=== PATIENT | male | born 1995 | race American Indian/Alaskan Native ===

== ENCOUNTER 2020-09-17 08:58 | Emergency (ER) | payer MEDICARE, MEDICAID ==
[~2020-09-17] VITALS: Ht 180.3 cm; Wt 73.0 kg
[~2020-09-17 08:58] MED LIST: CHLO1LIQ2 MC; CLA10T PO; CLIN150C2 PO; CYCL-1 PO; GUAI120015 PO; HYDR-4383 PO; Morphine; NAPR-56 PO; clindamycin; oxycodone
[2020-09-17 09:02] VITALS: BP 135/63
== END 2020-09-17 11:09 | disposition home or self-care (01) ==
LOC: ER 08:58
DX: S29.011A Strain of muscle and tendon of front wall of thorax, initial encounter (principal); J45.909 Unspecified asthma, uncomplicated; F41.9 Anxiety disorder, unspecified; F12.10 Cannabis abuse, uncomplicated; F15.10 Other stimulant abuse, uncomplicated; Z79.899 Other long term (current) drug therapy; V98.8XXA Other specified transport accidents, initial encounter; Y93.89 Activity, other specified; Y92.89 Other specified places as the place of occurrence of the external cause
CPT/HCPCS: 71045; 99283

== ENCOUNTER 2022-03-11 08:37 | Emergency (ER) | payer MEDICARE, MEDICAID ==
[~2022-03-11] VITALS: Ht 180.3 cm; Wt 70.5 kg
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
[2022-03-11] MEDS ORDERED: NALO4SPR BOTHNARES (13:10)
[2022-03-11 13:30] VITALS: BP 112/62
== END 2022-03-11 13:31 | disposition home or self-care (01) ==
LOC: ER 08:37
DX: T40.601A Poisoning by unspecified narcotics, accidental (unintentional), initial encounter (principal); J45.909 Unspecified asthma, uncomplicated; F12.90 Cannabis use, unspecified, uncomplicated; F15.20 Other stimulant dependence, uncomplicated; Y92.89 Other specified places as the place of occurrence of the external cause
CPT/HCPCS: 99283

== ENCOUNTER 2022-04-24 18:48 | Emergency (ER) | payer MEDICAID ==
[~2022-04-24] VITALS: Ht 180.3 cm; Wt 77.0 kg
[~2022-04-24 18:48] MED LIST changes: +NALO4SPR BOTHNARES
[2022-04-24 18:53] VITALS: BP 132/75
[2022-04-24] MEDS ORDERED: TETanus/Pertussis (Acell)/Diphther VAC/PF (Tdap-Adult) 0.5ml syringe IMVAC ONE (19:00)
[2022-04-24] MEDS ORDERED: LIDOCAINE 2%/EPI 1:100,000 inj. Multi-dose 20 ML VIAL IJ ONE (19:00)
--- NOTE | 2022-04-24 19:12 | NUR ---
[employer] ARTURO AT BEDSIDE. .
[2022-04-24] MEDS ORDERED: CEPH-585 PO (19:58)
== END 2022-04-24 20:22 | disposition home or self-care (01) ==
LOC: ER 18:48
DX: S51.812A Laceration without foreign body of left forearm, initial encounter (principal); J45.909 Unspecified asthma, uncomplicated; F41.9 Anxiety disorder, unspecified; F12.90 Cannabis use, unspecified, uncomplicated; F15.90 Other stimulant use, unspecified, uncomplicated; Z72.89 Other problems related to lifestyle; Z86.69 Personal history of other diseases of the nervous system and sense organs; Z79.899 Other long term (current) drug therapy; Y04.8XXA Assault by other bodily force, initial encounter; Y93.89 Activity, other specified; Y92.89 Other specified places as the place of occurrence of the external cause; Y99.8 Other external cause status
CPT/HCPCS: 12004; 90471; 90715; 99283; A6258; A6449

== ENCOUNTER 2022-05-11 06:39 | Emergency (ER) | payer MEDICAID ==
[~2022-05-11] VITALS: Ht 180.3 cm; Wt 75.0 kg
[2022-05-11 06:41] VITALS: BP 108/57
[2022-05-11] MEDS ORDERED: CEPH-585 PO (07:54)
== END 2022-05-11 08:42 | disposition home or self-care (01) ==
LOC: ER 06:39
DX: S41.112D Laceration without foreign body of left upper arm, subsequent encounter (principal); J45.909 Unspecified asthma, uncomplicated; F12.90 Cannabis use, unspecified, uncomplicated; F15.20 Other stimulant dependence, uncomplicated; Y08.89XD Assault by other specified means, subsequent encounter
CPT/HCPCS: 99283

== ENCOUNTER 2024-01-15 22:05 | Emergency (ER) | payer MEDICAID ==
[~2024-01-15] VITALS: Ht 177.8 cm; Wt 72.0 kg
[2024-01-15 22:16] VITALS: PULSE 126
[2024-01-15] MEDS: diphenhydrAMINE 25mg capsule PO ONE (22:44)
[2024-01-15 22:52] VITALS: BP 141/87; RESP 12; TEMP 98.3; O2SAT 97
== END 2024-01-15 23:54 ==
LOC: ER 22:05
DX: R00.0 Tachycardia, unspecified (principal); J45.909 Unspecified asthma, uncomplicated; F12.90 Cannabis use, unspecified, uncomplicated; F15.90 Other stimulant use, unspecified, uncomplicated; Z79.899 Other long term (current) drug therapy; Z79.2 Long term (current) use of antibiotics; V89.2XXA Person injured in unspecified motor-vehicle accident, traffic, initial encounter; W22.01XA Walked into wall, initial encounter; Y92.410 Unspecified street and highway as the place of occurrence of the external cause; Y99.8 Other external cause status
CPT/HCPCS: 93005; 99284; Q0163

== ENCOUNTER 2024-08-31 08:18 | Emergency (ER) | payer MEDICAID ==
[~2024-08-31] VITALS: Ht 177.8 cm; Wt 72.0 kg
[2024-08-31 08:21] VITALS: TEMP 98.1
[2024-08-31] MEDS ORDERED: iohexol 300mg/ml 100ml inj. ONE (08:46)
[2024-08-31 08:57] VITALS: RESP 16
[2024-08-31] MEDS: morphine 4 MG/ML inj SYRINge IV ONE (08:57)
[2024-08-31] MEDS: LIDOCAINE 2% (20mg/ml) w/EPINEPHRINE 1:200,000-PF 10 ML inj. SQ ONE (09:10)
[2024-08-31 09:11] LABS: BASOPHILS # (AUTO) 0.1 X10'3 (0-0.2); BASOPHILS % (AUTO) 0.9 % (0-1); EOSINOPHILS # (AUTO) 0.1 X10'3 (0-0.9); EOSINOPHILS % (AUTO) 1.3 % (0-6); HEMATOCRIT 38.3 % (42.0-52.0); HEMOGLOBIN 13.5 g/dl (14.0-17.9); LYMPHOCYTES # (AUTO) 1.4 X10'3 (1.1-4.8); MEAN CORPUSCULAR HEMOGLOBIN 32.6 PG (27.0-31.0); MEAN CORPUSCULAR HGB CONC 35.3 g/dL (33.0-36.5); MEAN CORPUSCULAR VOLUME 92.2 FL (78-98); MEAN PLATELET VOLUME 6.8 FL (7.4-10.4); MONOCYTES # (AUTO) 0.6 X10'3 (0-0.9); MONOCYTES % (AUTO) 6.7 % (2-12); NEUTROPHILS % (AUTO) 76.1 % (42-75); PLATELET COUNT 237 X10'3 (140-440); RED BLOOD COUNT 4.16 X10'6 (4.70-6.10); RED CELL DISTRIBUTION WIDTH 13.2 % (11.5-14.5); WHITE BLOOD COUNT 9.1 X10'3 (4.5-11.0)
[2024-08-31] MEDS: LIDOcaine 1% W/epiNEPHrine 1:100,000 20ml vial SQ ONE (09:11)
[2024-08-31 09:24] LABS: ALANINE AMINOTRANSFERASE 47 U/L (12-78); ALBUMIN 3.5 G/DL (3.4-5.0); ALKALINE PHOSPHATASE 80 IU/L (46-116); ANION GAP 11 (8-16); ASPARTATE AMINO TRANSFERASE 50 U/L (10-37); BILIRUBIN,TOTAL 0.6 MG/DL (0.1-1.0); BLOOD UREA NITROGEN 11 MG/DL (7-18); BUN/CREATININE RATIO 12.5 (10.0-20.0); CALCIUM 8.6 MG/DL (8.5-10.1); CHLORIDE 103 MMOL/L (99-107); CREATININE 0.88 MG/DL (0.60-1.10); GLUCOSE 153 MG/DL (70-104); POTASSIUM 3.2 MMOL/L (3.5-5.1); SODIUM 141 MMOL/L (135-145); TOTAL PROTEIN 6.9 G/DL (6.4-8.2); eCRCL 125 ML/MIN; eGFR > 90 ML/MIN
[2024-08-31 09:38] VITALS: BP 128/72; PULSE 81; O2SAT 98
--- NOTE | 2024-08-31 09:50 | RADIOLOGY REPORT ---
CT CT FACIAL BONES/SOFT TISSUE W/ IV CONTRAST INDICATION: abscess EXAM DATE: 08/31/2024 09:21 AM COMPARISON: None RADIATION DOSE: CTDIvol: 54 mGy, DLP: 1078 mGy*cm PROCEDURE: Using the CT scanner, contiguous noncontrast scans were obtained from above the orbital ri ms to below the mandible. Coronal and sagittal reformatted images were then generated. All CT scans at this medical facility are performed using dose modulation techniques as appropriate t o a performed exam including the following: Automated exposure control was utilized; adjustment of th e MA and/or KV according to patient size; and use of iterative reconstruction technique. FINDINGS: Mandible hardware appears intact. The facial bones, including the orbits and paranasal sinu ses are intact without evidence of fracture. The paranasal sinuses, mastoid air cells and middle ear cavities are normally aerated. The orbital contents are normal. Left malar and periorbital soft tissu e contusion. IMPRESSION: Left malar and periorbital soft tissue contusion/cellulitis. No focal fluid collection seen. No acute fracture CT findings of the maxillofacial region.
[2024-08-31] MEDS: CLINDAMYCIN 600mg IN NS 50ML 50 ML IV SCH (10:49)
--- NOTE | 2024-08-31 11:47 | Physician Documentation ---
History of Present Illness ~ Chief Complaint: Facial Swelling Stated Complaint: ABSCESS TOOTH/INGROWN HAIR Time Seen by MD: 08:26 Primary Medical Doctor: hunter MEHTA Patient is here with a left-sided facial swelling. It started at the left n ostril with the base. About six days ago and that has progressively expanded and now he has facial swelling around his eye as well. It has no fever or chills no trauma or any other symptoms. Tetanus Within 5 Years: Yes (2022) Medication Reconciliation Allergies: Coded Allergies: No Known Allergies (Unverified , 08/31/24) Scheduled Chlorhexidine (Chlorhexidine Flavor), 1 ML [facility] Clindamycin (Cleocin ), 300 MG PO Q8H, (Reported) Guaifenesin (Mucinex), 1 TAB PO Q12H Hydrocodone/Acetaminophen ([place] 5-325 Tablet), 1 TABLET PO BID Loratadine* (Claritin*), 10 MG PO DAILY, (Reported) Naloxone HCl (Narcan), 1 SPRAYS BOTHNARES ONCE Naproxen (Naproxen), 500 MG PO BID Scheduled PRN Cyclobenzaprine* (Cyclobenzaprine*), 1 TABLET PO Q8H PRN for muscle spasms Miscellaneous Medications [Morphine], (Reported) [clindamycin], (Reported) [oxycodone], (Reported) Past Medical History Past Medical History: Seizures, Asthma, Anxiety Past Surgical History: other Other Past Surgical History: wiring of his jaw Alcohol Use: Occasionally Drug Use: marijuana, methamphetamine Lives with: Mother Lives In: Home Physical Exam Vital Signs: Temperature: 98.1, Source: Temporal, Heart Rate: 81, Respiratory Rate: 16, BP: 128/72, Pulse Oximetry: 98, Weight: 72.050 Physical Exam General: Awake and Alert, no acute distress. HEENT: Conjunctiva pink, Sclera clear, Mucus Membranes moist. He has a extensive swelling of the left side of his face that has a pocket of fluid under the entrance of the left nostril that there is a erythema and swelling that extends to the lower eyelid and even some on the upper eyelid. Extraocular movements are normal conjunctiva is normal. He does not have pain with extraocular movements. Neck: Supple without masses and tenderness. Resp: Unlabored. Lungs clear to auscultation bilaterally. Heart: Regular Rate and rhythm, normal S1 and S2 without murmur, rub or gallop. Abdomen: Soft and non tender no organomegaly Extremities: No cyanosis,clubbing or edema. Skin: Warm and Dry. Neuro: GCS 15; no focal deficits Procedures Procedure Note Facial abscess incision and drainage. He was given IV Dilaudid for pain control the skin was cleaned with Betadine. Right at the entrance of the nostril in the left side is break in the skin that I injected 1% lidocaine with epinephrine in. I made a small incision with a 11. Blade and I tried to go through the area that there was already a skin deficit to reduce the amount of scar formation. Loculations were broken up with a hemostat I sent a wound culture he was able to released some small amount of purulent drainage. It was then packed with quarter-inch iodoform gauze and dressed by the nurse. Progress Results/Orders Results/Orders Orders - ERICKA EPLAYO MD Ct Facial Bones/Soft Tissue (08/31/24 09:25) Completed Orders - ERICKA PELAYO MD Cbc/Diff (08/31/24 08:31) CMP (08/31/24 08:31) Ct Facial Bones/Soft Tissue (08/31/24 09:25) Morphine 4mg/Ml Inj. (Morphine Inj.) (08/31/24 08:35) Lidocaine 2%/Epi 1:200,000pf (Xylocaine (08/31/24 08:35) Iohexol 300mg/Ml 100ml Inj. (Omnipaque-3 (08/31/24 08:46) Lidocaine 1% W/Epi 1:100,000 (Xylocaine (08/31/24 08:50) Clindamycin 600mg In Ns 50ml (Clindamyci (08/31/24 10:20) Medications Received in ER Medications (Trade) Dose Ordered Sig/Kimberlee Route PRN Reason Start Time Stop Time Status Last Admin Dose Admin (morphine inj.) 2 mg ONCE ONCE IV 08/31/24 08:35 08/31/24 08:36 DC 08/31/24 08:57 2 MG Clindamycin/ Sodium Chloride 50 ml @ 100 mls/hr ONCE IV 08/31/24 10:20 08/31/24 11:32 DC 08/31/24 10:49 100 MLS/HR Vital Signs 08/31/24 08/31/24 08/31/24 08:21 08:57 09:38 Temp 98.1 Pulse 99 81 Resp 18 16 B/P (MAP) 159/78 128/72 (90) Pulse Ox 99 98 Laboratory Tests Test 08/31/24 08:57 White Blood Count 9.1 Red Blood Count 4.16 L Hemoglobin 13.5 L Hematocrit 38.3 L Mean Corpuscular Volume 92.2 Mean Corpuscular Hemoglobin 32.6 H Mean Corpuscular Hemoglobin Concent 35.3 Red Cell Distribution Width 13.2 Platelet Count 237 Mean Platelet Volume 6.8 L Neutrophils (%) (Auto) 76.1 H Lymphocytes (%) (Auto) 15.0 L Monocytes (%) (Auto) 6.7 Eosinophils (%) (Auto) 1.3 Basophils (%) (Auto) 0.9 Neutrophils # (Auto) 7.0 Lymphocytes # (Auto) 1.4 Monocytes # (Auto) 0.6 Eosinophils # (Auto) 0.1 Basophils # (Auto) 0.1 CBC Comment Sodium Level 141 Potassium Level 3.2 L Chloride Level 103 Carbon Dioxide Level 27.0 Anion Gap 11 Blood Urea Nitrogen 11 Creatinine 0.88 Estimated GFR/1.73 m2 > 90 BUN/Creatinine Ratio 12.5 Glucose Level 153 H Calcium Level 8.6 Total Bilirubin 0.6 Aspartate Amino Transf (AST/SGOT) 50 H Alanine Aminotransferase (ALT/SGPT) 47 Alkaline Phosphatase 80 Total Protein 6.9 Albumin 3.5 Globulin 3.4 Albumin/Globulin Ratio 1.0 L Chemistry Comments Medical Decision Making Findings Patient presents with a impressive facial swelling and he has not obvious abscess. There is some swelling around the eye but he does not have tenderness with the extraocular movement. CT scan of the face was done with IV contrast. He does not have any orbital cellulitis. I did an incision and drainage of the abscess and was able to release him moderate amount of purulent drainage I packed it with quarter-inch iodoform gauze he is of the packing removed in three days he was given IV dose of clindamycin it was discharged with a prescription for clindamycin and ibuprofen and Tylenol for pain. Departure Disposition: HOME / SELF CARE / HOMELESS Impression: Primary Impression: Abscess of face Condition: Stable Discharge Instructions: Abscess, Care After Additional Instructions: You need to have the packing removed in three days. Returned for worsening symptoms, eye pain, visual changes or any concerns. Referrals: NO PRIMARY CARE PROVIDER (PCP) Prescriptions Clindamycin HCl (Clindamycin HCl) 300 Mg Capsule 1 CAP PO Q6H for 10 Days, #40 CAP Prov: ERICKA PELAYO MD 08/31/24 Ibuprofen (ADVIL) 200 Mg Tablet 400 MG PO Q6H for pain, #40 TAB Prov: ERICKA PELAYO MD 08/31/24 Acetaminophen (Acetaminophen Extra Strength) 500 Mg Tablet 2 TAB PO Q6H PRN for pain, #60 TAB Prov: ERICKA PELAYO MD 08/31/24 Education Educated: Patient Educated regarding: diagnosis, treatment, prognosis, need for follow up Signature Scribe Signature: no scribe Attestation: no scribe ERICKA PELAYO MD Aug 31, 2024 11:47
[2024-08-31] MEDS ORDERED: IBUP-24 PO (11:52)
[2024-08-31] MEDS ORDERED: ACET-2006 PO (11:52)
[2024-08-31] MEDS ORDERED: CLIN-197 PO (11:53)
== END 2024-08-31 12:23 | disposition home or self-care (01) ==
LOC: ER 08:19
DX: K04.7 Periapical abscess without sinus (principal); L02.01 Cutaneous abscess of face; J45.909 Unspecified asthma, uncomplicated
CPT/HCPCS: 10060; 36415; 70487; 80053; 85025; 87070; 87077; 87186; 96365; 96375; 99285; A6266; J2270; J3490; Q9967; A6449

== ENCOUNTER 2024-09-15 20:45 | Emergency (ER) | payer MEDICAID ==
[~2024-09-15] VITALS: Ht 172.7 cm; Wt 63.0 kg
[~2024-09-15 20:45] MED LIST changes: +ACET-2006 PO; +IBUP-24 PO
[2024-09-15 20:49] VITALS: BP 136/78; PULSE 112; RESP 15; TEMP 98.3; O2SAT 100
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
== END 2024-09-15 22:09 | disposition home or self-care (01) ==
LOC: ER 20:45
DX: Z02.89 Encounter for other administrative examinations (principal); J45.909 Unspecified asthma, uncomplicated; F41.9 Anxiety disorder, unspecified; F12.90 Cannabis use, unspecified, uncomplicated; F15.90 Other stimulant use, unspecified, uncomplicated; Z72.89 Other problems related to lifestyle; Z79.899 Other long term (current) drug therapy; V87.7XXA Person injured in collision between other specified motor vehicles (traffic), initial encounter; Y93.89 Activity, other specified; Y92.89 Other specified places as the place of occurrence of the external cause; Y99.8 Other external cause status
CPT/HCPCS: 99283

== ENCOUNTER 2024-11-08 07:31 | Emergency (ER) | payer MEDICARE, MEDICAID ==
[~2024-11-08] VITALS: Ht 180.3 cm; Wt 70.4 kg
[~2024-11-08 07:31] MED LIST changes: -ACET-2006 PO
[2024-11-08 07:38] VITALS: TEMP 97
[2024-11-08] MEDS ORDERED: SULF1TAB45 PO (08:21)
--- NOTE | 2024-11-08 08:21 | Physician Documentation ---
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 No obvious trigger provocation. Not clear how long it has been there. Similar to prior cellulitis and abscess infections. Decided to get evaluated. Denies any fever or chills. Denies chest pain or difficulty breathing. Incidentally reports left-sided forehead/head pulling sensation that has been there since he overdosed on xylazine seen on September 14. Smokes, drinks, does drugs. History of TBI and ADHD Tetanus Within 5 Years: Yes Medication Reconciliation Allergies: Coded Allergies: No Known Allergies (Unverified , 08/31/24) Scheduled Chlorhexidine (Chlorhexidine Flavor), 1 ML [facility] B[facility] Clindamycin (Cleocin ), 300 MG PO Q8H, (Reported) Guaifenesin (Mucinex), 1 TAB PO Q12H Hydrocodone/Acetaminophen ([place] 5-325 Tablet), 1 TABLET PO BID Ibuprofen (Advil), 400 MG PO Q6H Loratadine* (Claritin*), 10 MG PO DAILY, (Reported) Naloxone HCl (Narcan), 1 SPRAYS BOTHNARES ONCE Naproxen (Naproxen), 500 MG PO BID Scheduled PRN Cyclobenzaprine* (Cyclobenzaprine*), 1 TABLET PO Q8H PRN for muscle spasms Miscellaneous Medications [Morphine], (Reported) [clindamycin], (Reported) [oxycodone], (Reported) Past Medical History Past Medical History: Seizures, Asthma, Anxiety Past Surgical History: other Other Past Surgical History: wiring of his jaw Alcohol Use: Occasionally Drug Use: marijuana, methamphetamine Lives with: Mother Lives In: Home Review of Systems ROS 10 point review of systems was performed and unless noted above in HPI is negative for acute process/complaint. Physical Exam Vital Signs: Temperature: 97.0, Source: Temporal, Heart Rate: 82, Respiratory Rate: 16, BP: 125/93, Pulse Oximetry: 96, Weight: 70.400 Oxygen Flow Rate: 0 Physical Exam GENERAL: Awake, alert, oriented, GCS 15, no apparent distress, non-toxic appearing, answers questions, follows commands appropriately. HEENT: Atraumatic, normocephalic, pupils equal, extraocular muscles intact, sclerae anicteric, mucus membranes moist, oropharynx is clear, no stridor. NECK: supple, full active range of motion, trachea midline, no thyromegaly, no lymphadenopathy, no JVD. CARDIOVASCULAR: regular rate/rhythm, no murmurs/gallops/rubs, Pulses are 2+ in all extremities and symmetric. Capillary refill less than 2 seconds. PULMONARY: Nonlabored, good air movement ,no respiratory distress, speaking in full sentences, clear to auscultation bilaterally, no wheezing, no ronchi, no rales, no accessory muscle use. GASTROINTESTINAL: Soft, non-tender, non-distended, normal active bowel sounds, no organomegaly, no pulsatile masses, no CVA tenderness. NEUROLOGIC: Lucid with normal mental status. Normal facial symmetry. Moves all extremities symmetrically and with purpose. No truncal ataxia. Speech is fluid without evidence of dysarthria or aphasia, no focal deficits appreciated. MUSCULOSKELETAL: There is full range of motion of all extremities. There is no joint pain or joint swelling or joint erythema. There is no muscle pain or tenderness or swelling. EXTREMITIES: warm, well-perfused, no cyanosis, no clubbing, no edema, no acute deformities. Skin: warm, dry, no rashes or lesions, no jaundice, no petechiae orpurpura. No ecchymosis. PSYCHIATRIC: Normal affect, normal insight, normal concentration. Focused exam: There is erythema to the tip of the nose as well as nasal septum, no significant swelling, no fluctuance, no evidence of abscess. No extension to the face. No pain with a extraocular range of motion. No vision or hearing difficulties. Right buttock was examined. There is a proximally this is a cm area of erythema, calor, mild induration. No fluctuance. No abscess. No bleeding, no purulent discharge. It is approximately 2 cm away from the gluteal cleft. Progress Results/Orders Results/Orders Vital Signs 11/08/24 11/08/24 07:38 08:12 Temp 97.0 Pulse 88 82 Resp 16 16 B/P (MAP) 135/70 125/93 (104) Pulse Ox 99 96 O2 Flow Rate 0 Medical Decision Making Findings Facility Status: ED Holds, RME process The plan was discussed with the patient, who demonstrates clear understanding of the plan and is in agreement with the plan unless otherwise noted in the chart. All questions have been answered, all concerns were addressed unless otherwise documented. I was available throughout their ED stay for frequent reassessment and questions. Differential Diagnoses (considered and possible or likely): [Nasal septum cellulitis, unlikely to be an abscess, clinically no evidence of facial cellulitis, preseptal cellulitis, orbital cellulitis. Unlikely brain abscess. Buttock cellulitis, less likely buttock abscess. No evidence of perirectal or perianal abscess.] ??Differential Diagnoses (considered and unlikely, not requiring evaluation currently): [See above] MDM Data Please see [facility] for the following: Independent Historians and external Records Review. Historian: [Patient] Independent Historians: ?[Record review] Medication Management: [Reviewed medication list] Social History and determinants: [Reviewed] Please see the body of the note for the following: Any independent interpretations of ECG, imaging studies. All vitals signs/haemodynamics, ordered tests were independently reviewed and interpreted by myself. Nursing triage complaint and vitals reviewed, additional nursing notes were reviewed as available and I agree unless otherwise noted or documented in contradiction in the chart Vital Signs: Independently reviewed Labs: Independently interpreted Imaging: Independently interpreted Old Medical Records: Independently reviewed, see [facility] for relevant summary and information Pulse Oximetry: [100%] interpreted as [normal on room air] by me Additionally notably showing: [Hemodynamically stable] Tests considered but not ordered include: [Hematologic workup and imaging has been considered but does not appear to be necessary given clinical nature of diagnosis] Social Determinants of Health Impact: Patient was evaluated in [facility] [place] to healthcare due to below par ratio of patient to medical providers. [] Comorbid Conditions Impacting Present Evaluation and Care/Treatment: [History of staph infections] Management Discussions with other Healthcare Providers: [None] Treatment and Disposition Medication Management (Given or considered): []. See EMR for details Consideration for Hospitalization/Escalation/Deescalation of Care: Admission for observation has been considered, [however the patient is able to tolerate p.o., their symptoms are controlled, they are able to rely on oral medications, and their chief complaint/diagnosis can be managed on outpatient basis.] ?ED Course:?[No clinical deterioration.] ?Shared decision making:?[Patient is hemodynamically stable for discharge home with follow with their primary care provider. [ ] Specific and cautious return precautions provided and discussed with full understanding. Any incidental findings were also discussed and follow up recommendations given. [] All questions answered. Patient/family were able to verbalize back return precautions. Patient/family agree to plan. Copies of imaging and laboratory studies were provided.] Code status:?FULL Please see the full Electronic Medical Record for full details of nursing documentation, medications list, other records of complete past medical history and conditions, vital signs, laboratory studies, and any radiologic study interpretations by radiologists. Portions of this note were completed using [employer] PT[employer] dictation software and as a result there may exist minor errors in spelling. I have reviewed elements of past family and social history and agree as included in note. Departure Disposition: 01 HOME / SELF CARE / HOMELESS Impression: Primary Impression: Cellulitis of nasal tip Additional Impression: Cellulitis of right buttock Condition: Stable Discharge Instructions: Cellulitis, Adult, [id number] Referrals: NO PRIMARY CARE PROVIDER (PCP) Prescriptions Sulfamethoxazole/Trimethoprim (Septra Ds Tab) 800 Mg/160 Mg Tablet 1 TAB PO Q12H for 10 Days, #20 TAB Prov: ELLE HAWKINS DO 11/08/24 Education Educated: Patient Educated regarding: diagnosis, treatment, prognosis, need for follow up Signature Scribe Signature: No scribe Attestation: This note accurately reflects clinical decisions, work performed by myself, DO SHRUTHI Palmer NICHOLAS M DO Nov 08, 2024 08:20
[2024-11-08 08:38] VITALS: BP 135/80; PULSE 91; RESP 16; O2SAT 100
== END 2024-11-08 08:40 | disposition home or self-care (01) ==
LOC: ER 07:32
DX: J34.0 Abscess, furuncle and carbuncle of nose (principal); L03.317 Cellulitis of buttock; J45.909 Unspecified asthma, uncomplicated; F17.200 Nicotine dependence, unspecified, uncomplicated; F41.9 Anxiety disorder, unspecified; F12.90 Cannabis use, unspecified, uncomplicated; F15.90 Other stimulant use, unspecified, uncomplicated; Z79.899 Other long term (current) drug therapy; Z72.89 Other problems related to lifestyle
CPT/HCPCS: 99283

== ENCOUNTER 2024-12-19 05:40 | Emergency (ER) | payer MEDICAID ==
[~2024-12-19] VITALS: Ht 180.3 cm; Wt 70.8 kg
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
--- NOTE | 2024-12-19 09:06 | RADIOLOGY REPORT ---
CLINICAL INDICATION: right thigh wound and trauma TECHNIQUE: DI FEMUR 2 VIEWS Comparison: None FINDINGS/IMPRESSION: : There is no evidence of acute fracture or dislocation. Soft tissues are unremarkable.
[2024-12-19] MEDS: CefTRIAXone/D5W-Rocephin 1gm 50 ML IV ONE (09:14)
[2024-12-19 09:33] LABS: CREATININE 0.69 MG/DL (0.60-1.10); TOTAL CARBON DIOXIDE 30.4 MMOL/L (24-32); eCRCL 157 ML/MIN; eGFR > 90 ML/MIN
[2024-12-19 09:34] LABS: MEAN PLATELET VOLUME 6.9 FL (7.4-10.4); RED CELL DISTRIBUTION WIDTH 12.4 % (11.5-14.5)
[2024-12-19] MEDS: LIDOcaine 1% W/epiNEPHrine 1:100,000 20ml vial SQ ONE (10:40)
[2024-12-19] MEDS ORDERED: SULF1TAB49 PO (13:12)
[2024-12-19] MEDS ORDERED: CEPH500C2 PO (13:12)
[2024-12-19] MEDS ORDERED: IBUP600T52 PO (13:13)
[2024-12-19 13:36] VITALS: BP 105/74; PULSE 70; RESP 16; TEMP 98.3; O2SAT 100
== END 2024-12-19 13:40 | disposition home or self-care (01) ==
LOC: ER 05:40
DX: L02.415 Cutaneous abscess of right lower limb (principal); L03.115 Cellulitis of right lower limb; J45.909 Unspecified asthma, uncomplicated; F41.9 Anxiety disorder, unspecified; F12.90 Cannabis use, unspecified, uncomplicated; F15.90 Other stimulant use, unspecified, uncomplicated; Z79.899 Other long term (current) drug therapy; Z72.89 Other problems related to lifestyle
CPT/HCPCS: 36415; 73552; 80048; 83605; 85025; 87040; 96365; 99285; A6266; J0696; A6449

== ENCOUNTER 2025-01-24 09:29 | Emergency (ER) | payer MEDICAID ==
[~2025-01-24] VITALS: Ht 180.3 cm; Wt 69.8 kg
[~2025-01-24 09:29] MED LIST changes: +IBUP600T52 PO
[2025-01-24 09:33] VITALS: TEMP 97.7
--- NOTE | 2025-01-24 10:25 | Physician Documentation ---
History of Present Illness ~ General Chief Complaint: Multiple Medical Complaints Stated Complaint: STAPH Time Seen by MD: 10:07 OK to notify your PCP?: No Primary Medical Doctor: hunter molina History of Present Illness Initial Comments Patient presents to the ED complaining of a recurrent staph infection. denies fevers States the infection on is on his superior gluteal cleft Medication Reconciliation Allergies: Coded Allergies: No Known Allergies (Unverified , 01/24/25) Scheduled Chlorhexidine (Chlorhexidine Flavor), 1 ML [facility] BIDPC Clindamycin (Cleocin ), 300 MG PO Q8H, (Reported) Guaifenesin (Mucinex), 1 TAB PO Q12H Hydrocodone/Acetaminophen ([place] 5-325 Tablet), 1 TABLET PO BID Ibuprofen (Advil), 400 MG PO Q6H Ibuprofen (Ibuprofen), 1 TAB PO Q8H Loratadine* (Claritin*), 10 MG PO DAILY, (Reported) Naloxone HCl (Narcan), 1 SPRAYS BOTHNARES ONCE Naproxen (Naproxen), 500 MG PO BID Scheduled PRN Cyclobenzaprine* (Cyclobenzaprine*), 1 TABLET PO Q8H PRN for muscle spasms Miscellaneous Medications [Morphine], (Reported) [clindamycin], (Reported) [oxycodone], (Reported) Past Medical History Past Medical History: Seizures, Asthma, Anxiety Past Surgical History: other Other Past Surgical History: wiring of his jaw Alcohol Use: Occasionally Drug Use: marijuana, methamphetamine Lives with: Mother Lives In: Home Review of Systems All Other Systems at this time: Reviewed and Negative ROS As stated above in the HPI, otherwise all systems are reviewed and negative. Physical Exam Physical Exam Vital Signs: Temperature: 97.7, Source: Oral, Heart Rate: 68, Respiratory Rate: 17, BP: 112/80, Pulse Oximetry: 95, Weight: 69.800 Physical Exam General: Alert, no apparent distress. Neurologic: Oriented x4. Psychiatric: Normal mood and affect. Skin: N erythematous region in the gluteal cleft no fluctuance Progress Results/Orders Results/Orders Vital Signs 01/24/25 09:33 Temp 97.7 Pulse 68 Resp 17 B/P (MAP) 112/80 Pulse Ox 95 Medical Decision Making Additional information obtaine: N/A Findings He will treat this patient empirically with the oral antibiotics for suspected developing staph infection Differential Diagnosis cellulitis Departure Disposition: HOME / SELF CARE / HOMELESS Impression: Primary Impression: Cellulitis Condition: Stable Discharge Instructions: Cellulitis, Adult, [id number] Referrals: NO PRIMARY CARE PROVIDER (PCP) Prescriptions Sulfamethoxazole/Trimethoprim (Septra Ds Tab) 800 Mg/160 Mg Tablet 1 TAB PO Q12H for 10 Days, #20 TAB Prov: DANNY DONNELLY NP 01/24/25 Education Educated: Patient Educated regarding: diagnosis Signature Scribe Signature: f Attestation: Scribed for Danny Donnelly Manager [employer] by Danny Edmonds NP . 01/24/25 10:31 DANNY DONNELLY NP Jan 24, 2025 10:25
[2025-01-24] MEDS ORDERED: SULF1TAB45 PO (10:28)
[2025-01-24 10:45] VITALS: BP 111/70; PULSE 73; RESP 17; O2SAT 100
== END 2025-01-24 10:47 | disposition home or self-care (01) ==
LOC: ER 09:30
DX: L03.317 Cellulitis of buttock (principal); J45.909 Unspecified asthma, uncomplicated; F41.9 Anxiety disorder, unspecified; F12.90 Cannabis use, unspecified, uncomplicated; F15.90 Other stimulant use, unspecified, uncomplicated; Z79.899 Other long term (current) drug therapy; Z72.89 Other problems related to lifestyle
CPT/HCPCS: 99283